=== PATIENT | female | born 1945 | race African-American/Black ===

== ENCOUNTER → 2016-11-06 | Day surgery (SDC) | payer MEDICARE ==
[~2016-11-06] MED LIST: NIFEDIPINE; SYNTHROID
== END | disposition home or self-care (01) ==
LOC: RAD 09:38
PROVIDERS: ATTEND Internal Medicine Endocrinology, Diabetes & Metabolism
DX: E04.1 Nontoxic single thyroid nodule (principal); Z53.9 Procedure and treatment not carried out, unspecified reason
CPT/HCPCS: 76942

== ENCOUNTER 2019-01-14 10:54 | Emergency (ER) | payer MEDICARE ==
[~2019-01-14] VITALS: Ht 165.1 cm; Wt 76.0 kg
[2019-01-14] MEDS ORDERED: KETOROLAC 15MG/ML VIAL IV ONE (12:30)
[2019-01-14] MEDS ORDERED: TRAMADOL 50MG TABLET PO ONE (12:30)
[2019-01-14 14:06] VITALS: BP 172/98
== END 2019-01-14 14:10 | disposition home or self-care (01) ==
LOC: ER 10:54
DX: M54.41 Lumbago with sciatica, right side (principal); E11.9 Type 2 diabetes mellitus without complications; E78.00 Pure hypercholesterolemia, unspecified; I10 Essential (primary) hypertension
CPT/HCPCS: 72100; 96374; 99283; J1885

== ENCOUNTER 2019-01-17 10:30 | Emergency (ER) | payer MEDICARE ==
[~2019-01-17] VITALS: Ht 172.7 cm; Wt 64.0 kg
[2019-01-17] MEDS ORDERED: FAMOTIDINE 20MG/2ML VIAL IV ONE (11:00)
[2019-01-17] MEDS ORDERED: METHYLPREDNISOLONE SOD SUCC 125 MG/2 ML VIAL IV ONE (11:00)
[2019-01-17] MEDS ORDERED: DIPHENHYDRAMINE 50MG/ML VIAL IV ONE (11:00)
[2019-01-17 12:02] VITALS: BP 143/88
== END 2019-01-17 12:43 | disposition home or self-care (01) ==
LOC: ER 10:30
DX: R22.0 Localized swelling, mass and lump, head (principal); T40.4X5A Adverse effect of other synthetic narcotics, initial encounter; Y92.89 Other specified places as the place of occurrence of the external cause; M54.30 Sciatica, unspecified side; E11.9 Type 2 diabetes mellitus without complications; I10 Essential (primary) hypertension
CPT/HCPCS: 96374; 96375; 99283; J1200; J2930; J3490